=== PATIENT | female | born 1960 | race Caucasian/White ===

== ENCOUNTER 2016-11-14 07:21 | Observation (INO) | payer OTHER ==
[2016-11-11 15:56] VITALS: BMI 30.2
[2016-11-14] VITALS (21 sets, daily range): BP systolic 105–153; BP diastolic 48–71; PULSE 60–88; RESP 11–18; Ht 167.6 cm; Wt 85.9 kg
[~2016-11-14] VITALS: Ht 167.6 cm; Wt 85.9 kg
[2016-11-14] MEDS ORDERED: ATOR80TA75 PO (08:34)
[2016-11-14] MEDS ORDERED: OMEP20CA16 PO (08:35)
[2016-11-14] MEDS ORDERED: CITA10TA72 PO (08:36)
[2016-11-14] MEDS ORDERED: ATEN50TA PO (08:36)
[2016-11-14] MEDS ORDERED: ATEN-51 PO (08:37)
--- NOTE | 2016-11-14 08:41 | RADRPT ---
PROCEDURE: XR Chest AP portable CLINICAL INDICATION: Right mastectomy TECHNIQUE: An AP portable radiograph of the chest was submitted. COMPARISON: None. FINDINGS: Support Hardware: None Cardiovascular: The cardiovascular silhouette appears unremarkable. Lung Montgomery: The lung montgomery appear clear with no nodule, alveolar infiltrate, or interstitial promi nence evident. Pleural Spaces: No pneumothorax or pleural effusion is identified. Osseous Structures: The osseous structures appear intact. Soft Tissues: The soft tissues appear generous. IMPRESSION: Unremarkable portable chest. Physician Clifton Date Time Electronically viewed and signed by Kristine Radford Physician on 11/14/2016 08:41 /
[2016-11-14 09:42] LABS: ADD SCAN DIFF NO
[2016-11-14 09:45] LABS: BASOPHILS % 0.5 % (0.0-2.0); EOSINOPHILS # 0.3 10^3/ul (0.0-0.5); EOSINOPHILS % 4.7 % (0.0-7.0); HEMOGLOBIN 12.4 g/dl (12.0-16.0); LYMPHOCYTES # 1.7 10^3/ul (0.8-2.9); LYMPHOCYTES % 28.1 % (15.0-51.0); MEAN CORPUSCULAR HEMOGLOBIN 29.1 pg (29.0-33.0); MEAN CORPUSCULAR HGB CONC 33.5 g/dl (32.0-37.0); MEAN CORPUSCULAR VOLUME 86.9 fl (82.0-101.0); MEAN PLATELET VOLUME 10.9 fl (7.4-10.4); MONOCYTE # 0.5 10^3/ul (0.3-0.9); MONOCYTES % 7.5 % (0.0-11.0); NEUTROPHIL # 3.5 10^3/ul (1.6-7.5); NEUTROPHILS % 58.9 % (39.0-77.0); PLATELET COUNT 258 10^3/UL (140-415); RED BLOOD COUNT 4.26 10^6/ul (4.20-5.40); RED CELL DISTRIBUTION WIDTH 12.5 % (11.5-14.5)
[2016-11-14 10:02] LABS: INR 0.91; PROTIME 12.3 Sec (12.2-14.2)
[2016-11-14 10:03] LABS: PARTIAL THROMBOPLASTIN TIME 26.4 Sec (25.0-35.0)
[2016-11-14 10:04] LABS: ALBUMIN/GLOBULIN RATIO 1.42; BILIRUBIN,INDIRECT 0.4 mg/dl (0-1.1); BILIRUBIN,TOTAL 0.4 mg/dl (0.2-1.3); TOTAL PROTEIN 8.5 g/dl (6.1-8.1)
[2016-11-14 10:19] LABS: CALCIUM 10.3 mg/dl (8.4-10.2); CREATININE 0.69 mg/dl (0.44-1.00); POTASSIUM 4.3 mmol/L (3.5-5.1)
[2016-11-14] MEDS ORDERED: FENTAnyl 50 MCG/ML VIAL ONE ×2 (10:45)
[2016-11-14] MEDS ORDERED: MIDAZOLAM 1 MG/ML 2 ML INJ ONE (10:45)
[2016-11-14] MEDS ORDERED: PROPOFOL 20 ML ONE (10:45)
[2016-11-14] MEDS ORDERED: METOCLOPRAMIDE 10 MG INJ ONE (10:46)
[2016-11-14] MEDS ORDERED: CEFAZOLIN 1 GM INJ ONE (10:47)
[2016-11-14] MEDS ORDERED: DIPHENHYDRAMINE 50 MG INJ IV PRN (11:00)
[2016-11-14] MEDS ORDERED: MEPERIDINE 25 MG INJ IV PRN (11:00)
[2016-11-14] MEDS ORDERED: ONDANSETRON 4 MG INJ IV PRN ×2 (11:00)
[2016-11-14] MEDS ORDERED: METOCLOPRAMIDE 10 MG INJ IV PRN (11:00)
[2016-11-14] MEDS ORDERED: HYDROmorphONE (0.2 MG/ML) 10ML SYG IV PRN ×2 (11:00)
[2016-11-14] MEDS ORDERED: ACETAMINOPHEN 1000MG/100ML IV 100 ML IVPB PRN (11:00)
[2016-11-14] MEDS ORDERED: ONDANSETRON 4 MG INJ ONE (11:21)
[2016-11-14] MEDS ORDERED: EPHEDrine SULFATE 50 MG/5 ML SYG ONE (11:22)
[2016-11-14] MEDS ORDERED: HYDROmorphONE 2 MG/ML SYG ONE (11:39)
[2016-11-14] MEDS: HYDROmorphONE (0.2 MG/ML) 10ML SYG IV PRN ×2 (12:35→13:08)
[2016-11-14] MEDS ORDERED: SOD CHLORIDE 0.9% 1,000 ML IV ONE (13:30)
[2016-11-14] MEDS ORDERED: CEFAZOLIN 2 GM/50 ML (PMX) 50 ML IVPB ONE (13:30)
[2016-11-14] MEDS: D5W-0.45 NACL + KCL 20 MEQ 1,000 ML IV SCH ×3 (13:53→21:35)
[2016-11-14] MEDS ORDERED: VITAMIN A & D 5 GM OINT PACKET TOP ONE (17:56)
[2016-11-14] MEDS: morphine 2 MG INJ IV PRN ×2 (18:12→21:32)
[2016-11-14] MEDS ORDERED: ATORVASTATIN 80 MG TAB PO SCH (21:00)
[2016-11-15 00:13] VITALS: BP 120/59; RESP 20
[2016-11-15] MEDS: morphine 2 MG INJ IV PRN ×2 (02:03→08:24)
--- NOTE | 2016-11-15 03:51 | HP ---
DATE OF ADMISSION: 11/14/2016 CHIEF COMPLAINT: The patient is a 56-year-old female with history of hypertension, dyslipidemia, and depression. The patient recently underwent surveillance mammography and ultrasonography and was found to have 2 areas of suspicious microcalcification in the right breast. The patient subsequently underwent biopsies for both lesions and was diagnosed with ductal carcinoma in situ. The patient was brought into the hospital today and underwent right modified radical mastectomy. The patient did have significant postoperative pain and is admitted for further evaluation and management. The patient did not have any nausea or vomiting. No history of headache, dizziness, syncope. No history of . No history of abdominal pain. No history of leg edema. No history of shortness of breath prior to admission. No history of coronary disease, CVA, or diabetes prior to admission other than postoperative pain. The rest of the systems unremarkable. PAST MEDICAL HISTORY: As stated above. PAST SURGICAL HISTORY: None. ALLERGIES: NONE. SOCIAL HISTORY: Smoking, yes. No alcohol abuse. FAMILY HISTORY: Patient's aunt has history of breast cancer. PHYSICAL EXAMINATION: GENERAL: Patient is conscious, awake, alert. VITAL SIGNS: Temperature 98, pulse 88, blood pressure 127/63, O2 sat 97 on 2 L nasal cannula, respirations 15. HEENT: No or redness. Extraocular movements intact. Oropharynx clear. NECK: Supple. No thyromegaly. CHEST: Clear to auscultation. HEART: Normal. No murmur. ABDOMEN: Soft, nontender. Bowel sounds heard. EXTREMITIES: No leg edema. NEUROLOGIC: The patient is awake, alert, oriented with no gross focal deficit. LABS: Prior to admission, WBC 6, hemoglobin 12.4, platelets 258. Sodium 140, potassium 4.2, BUN 17, creatinine 0.6, glucose 100, calcium 10.3. IMPRESSION: 1. Right breast cancer, status post right modified radical mastectomy. 2. Hypertension. 3. Dyslipidemia. 4. Depression. PLAN: Patient admitted on medical floor. Patient will be started on clear liquid diet, which will be advanced as tolerated. The patient will be given Tylenol, Percocet and IV morphine for pain control. We will use SCD for DVT prophylaxis. We will resume Tenormin, Lipitor, Celexa, as at home. The patient also was taking omeprazole, which will be substituted by Protonix. If the patient continues to do well, she will be discharged home tomorrow. Plan of care discussed with patient's daughter. Will continue to follow from medical standpoint. We will repeat chemistry tomorrow to reassess mildly elevated sodium and calcium. Dictated By: Jairo Thornton MD /deb/ajay /Document#: [id number]
[2016-11-15] MEDS: D5W-0.45 NACL + KCL 20 MEQ 1,000 ML IV SCH ×2 (05:00→13:31)
[2016-11-15] MEDS ORDERED: PANTOPRAZOLE (EC) 40 MG TAB PO SCH (06:00)
[2016-11-15 06:07] LABS: ALBUMIN 3.7 g/dl (3.3-4.9); ALBUMIN/GLOBULIN RATIO 1.19; BILIRUBIN,INDIRECT 0.4 mg/dl (0-1.1); BILIRUBIN,TOTAL 0.4 mg/dl (0.2-1.3); CALCIUM 8.9 mg/dl (8.4-10.2); CREATININE 0.73 mg/dl (0.44-1.00); POTASSIUM 4.2 mmol/L (3.5-5.1); TOTAL PROTEIN 6.8 g/dl (6.1-8.1)
[2016-11-15 07:00] VITALS: BP 109/56; RESP 18
[2016-11-15] MEDS ORDERED: CITALOPRAM 20 MG TAB PO SCH (09:00)
[2016-11-15] MEDS ORDERED: ATENOLOL 25 MG TAB PO SCH (09:00)
[2016-11-15 09:31] VITALS: BP 125/57; PULSE 82
[2016-11-15] MEDS: HYDROCODONE/APAP (5/325) TAB PO PRN ×2 (11:57→16:43)
[2016-11-15] MEDS ORDERED: HYDR-3498 PO (15:28)
--- NOTE | 2016-11-15 15:32 | DS ---
BALWINDER LAWSON 11/15/16 1532: Date/Time of Note Date/Time of Note DATE: 11/15/16 TIME: 15:31 Discharge Summary Admission/Discharge Info Admit Date/Time Nov 14, 2016 at 10:53 Discharge Date/Time Discharge Diagnosis Right breast cancer, status post right modified radical mastectomy. Patient Condition: Good Hx of Present Illness The patient is a 56-year-old female with history of hypertension, dyslipidemia, and depression. The patient recently underwent surveillance mammography and ultrasonography and was found to have 2 areas of suspicious microcalcification in the right breast. The patient subsequently underwent biopsies for both lesions and was diagnosed with ductal carcinoma in situ. The patient was brought into the hospital today and underwent right modified radical mastectomy. The patient did have significant postoperative pain and is admitted for further evaluation and management. The patient did not have any nausea or vomiting. No history of headache, dizziness, syncope. No history of . No history of abdominal pain. No history of leg edema. No history of shortness of breath prior to admission. No history of coronary disease, CVA, or diabetes prior to admission other than postoperative pain. The rest of the systems unremarkable. Hospital Course 1. Right breast cancer, status post right modified radical mastectomy. 2. Hypertension. 3. Dyslipidemia. 4. Depression. Home Meds Active Scripts Hydrocodone Bit-Acetaminophen (Hydrocodone Bit-APAP) 5-325MG Tablet, 1 TAB PO Q4H Y for PAIN, #30 TAB Prov:BALWINDER LAWSON 11/15/16 Reported Medications Atenolol* (Atenolol*) 25 Mg Tablet, 25 MG PO DAILY, #30 TAB 11/14/16 Citalopram Hydrobromide* (Celexa*) 10 Mg Tablet, 10 MG PO DAILY, #30 TAB 11/14/16 Omeprazole* (Omeprazole*) 20 Mg Capsule.dr, 20 MG PO DAILY, #30 CAP 11/14/16 Atorvastatin* (Atorvastatin*) 80 Mg Tablet, 80 MG PO QHS, #30 TAB 11/14/16 Discontinued Reported Medications Atenolol* (Atenolol*) 50 Mg Tablet, 50 MG PO DAILY, #30 TAB 11/14/16 Follow-up Plan Follow-up with Dr. Avitia in 1 week Primary Care Provider Rafa Vaughan MD Time spent on discharge: > 30 minutes Pending Labs Laboratory Tests Test 11/15/16 04:47 Sodium Level 142mmol/L (135-144) Potassium Level 4.2mmol/L (3.5-5.1) Chloride Level 103mmol/L (97-110) Carbon Dioxide Level 27mmol/L (21-31) Anion Gap 16 (8-16) Blood Urea Nitrogen 9mg/dl (7-20) Creatinine 0.73mg/dl (0.44-1.00) Glucose Level 112mg/dl (70-220) Calcium Level 8.9mg/dl (8.4-10.2) Total Bilirubin 0.4mg/dl (0.2-1.3) Direct Bilirubin 0.00mg/dl (0.00-0.20) Indirect Bilirubin 0.4mg/dl (0-1.1) Aspartate Amino Transf (AST/SGOT) 40IU/L (15-46) Alanine Aminotransferase (ALT/SGPT) 57IU/L (13-69) Alkaline Phosphatase 83IU/L (42-121) Total Protein 6.8g/dl (6.1-8.1) Albumin 3.7g/dl (3.3-4.9) Globulin 3.10g/dl (1.3-3.2) Albumin/Globulin Ratio 1.19 RUTH BUCK MD 11/16/16 1620: Discharge Summary Admission/Discharge Info Home Meds Active Scripts Hydrocodone Bit-Acetaminophen (Hydrocodone Bit-APAP) 5-325MG Tablet, 1 TAB PO Q4H Y for PAIN, #30 TAB Prov:BALWINDER LAWSON 11/15/16 Reported Medications Atenolol* (Atenolol*) 25 Mg Tablet, 25 MG PO DAILY, #30 TAB 11/14/16 Citalopram Hydrobromide* (Celexa*) 10 Mg Tablet, 10 MG PO DAILY, #30 TAB 11/14/16 Omeprazole* (Omeprazole*) 20 Mg Capsule.dr, 20 MG PO DAILY, #30 CAP 11/14/16 Atorvastatin* (Atorvastatin*) 80 Mg Tablet, 80 MG PO QHS, #30 TAB 11/14/16 Discontinued Reported Medications Atenolol* (Atenolol*) 50 Mg Tablet, 50 MG PO DAILY, #30 TAB 11/14/16 BALWINDER LAWSON Nov 15, 2016 15:32 RUTH BUCK MD Nov 16, 2016 16:20
--- NOTE | 2016-11-15 17:34 | RADRPT ---
Vent Rate: 61 bpm RR Interval: 0 msec NE Interval: 184 msec QRS Duration: 88 msec QT Interval: 446 msec QTC Interval: 448 msec P-R-T Keller: 57 - 47 - 59 degrees Normal sinus rhythm Normal ECG Electronically Signed By: Franco Molina [id number]
--- NOTE | 2016-11-18 13:47 | OPR ---
DATE OF OPERATION: 11/14/2016 SURGEON: Rafiq Avitia MD. SUPERVISOR CYTOGENETIC LABORATORY: None. ANESTHESIOLOGIST: Laila Daniels MD PREOPERATIVE DIAGNOSIS: Extensive ductal carcinoma in situ right breast, with suspicion of invasive cancer. POSTOPERATIVE DIAGNOSIS: Extensive ductal carcinoma in situ right breast, with suspicion of invasive cancer. OPERATION PERFORMED: Right modified radical mastectomy. ANESTHESIA: General. INDICATIONS FOR PROCEDURE: The patient is a 56-year-old female, she underwent screening mammography. She was found to have at least 2 large areas of microcalcification's in her right breast. She underwent core biopsy 1 of these areas which revealed high- grade DCIS, highly suspicious for invasive cancer. I reviewed her mammogram with attending [facility] Radiologist Dr. Bea Presley. Due to the fact that there was extensive microcalcification's and that lesions were quite poor far apart, the recommendation was for mastectomy. The patient also desired to have a mastectomy. She consented and was scheduled for a modified radical mastectomy with level 1 dissection. OPERATIVE PROCEDURE: The patient was brought to the operating theater and placed under general endotracheal tube anesthesia. The right breast and axillary region was prepped and draped in usual sterile fashion. The planned elliptical incision was made around the nipple areolar complex. Including a portion of the skin overlying the anterior aspect of the breast, this was carried out with a 15 blade scalpel. Subcutaneous tissue was then dissected with cautery. Allis Efra clamps were used to elevate the skin edges and skin flaps were created using cautery, 1st superiorly to the clavicle, then medially to the sternal border, and then inferiorly to the inframammary fold, and laterally until the latissimus dorsi muscle was defined throughout its course. Mastectomy then took place from medial to lateral at the border of the pectoralis major muscle. The pectoralis minor muscle was identified. Gentle blunt dissection along the chest wall allowed for identification of the long thoracic nerve. There was no definite evidence of pathologic lymph nodes. There for a very limited level 1 dissection was done using the LigaSure device. Final connective tissue attachments to the latissimus dorsi muscle were then transected with cautery. The specimen was then oriented and sent for permanent pathologic analysis. The wound was irrigated. Minimal bleeding was controlled with cautery. Two #10 flat Qu[place]Austin drains were brought through the right mid axillary line. One was kept aside and lay within the axilla. The other was lay within the axilla. The other was laid over the pectorals major muscle. Both drains were secured in place with #2 nylon sutures in the standard fashion. The skin was then reapproximated with skin ramone. The patient tolerated the procedure well. Estimated blood loss was 50 mL. There were no complications. The patient was transported in stable condition to the recovery room where a circumferential compression dressing was applied. Dictated By: Rafiq Avitia MD /deb/hayley /Document#: [id number]
--- NOTE | 2016-11-23 06:08 | PN ---
DATE: 11/15/2016 SUBJECTIVE DATA: Just complains of some pain, otherwise no other complaints. No nausea or vomiting. Has tolerated diet and been able to walk around. OBJECTIVE DATA: Postop day number 1 mastectomy. Two Qu[place] drains in place. VITAL SIGNS: Temperature 98.3, heart rate 78, respiration 18, blood pressure 125/57, and saturation 98 percent room air. BREASTS: Quinton Austin drains 90 cc, 2 of the them serosanguinous fluid. [____] with chest wall wrap is not tight, it is not very loose. ASSESSMENT: The patient is status post mastectomy. She is stable, tolerating diet. Qu[place] drains with serosanguinous fluid. PLAN: The patient can be discharged home today with pain medication and followup with Dr. Avitia' Office. The patient was taught how to take care of the Qu[place] Austin drains, how to empty them, how to record the amount of drainage and take the list of drainage when she goes to Dr. Avitia' Office . Dictated By: Jem Olivas MD /deb/tonio /Document#: [id number] LORELEI
== END 2016-11-15 16:45 | disposition home or self-care (01) ==
LOC: SDS 07:21 → INTOOBSV 10:53 → MS1 10:53
PROVIDERS: ADMIT Surgery Surgical Oncology; ATTEND Surgery Surgical Oncology
DX: C50.911 Malignant neoplasm of unspecified site of right female breast (principal); Z17.0 Estrogen receptor positive status [ER+]; I10 Essential (primary) hypertension; E78.5 Hyperlipidemia, unspecified; F17.200 Nicotine dependence, unspecified, uncomplicated; F32.9 Major depressive disorder, single episode, unspecified; Z80.3 Family history of malignant neoplasm of breast
CPT/HCPCS: 19307; 71010; 80053; 85025; 85610; 85730; 88307; 93005; J0690; J1170; J2250; J2270; J2405; J2765; J3010; J3480; Z7500; Z7512; Z7610; 99217; G0378